=== PATIENT | female | born 1930 | race Caucasian/White ===

== ENCOUNTER 2018-11-19 11:17 | Inpatient (IN) | payer MEDICARE, BC ==
[2018-11-19] MEDS ORDERED: cefTRIAXone IN SWFI 1,000 MG/10 ML SYRINGE IVP STA (11:51)
[2018-11-19] MEDS ORDERED: metroNIDAZOLE-NS PMX 500 MG in SALINE 1 100ML.BAG IVPB STA (11:51)
[2018-11-19] MEDS ORDERED: SODIUM CHLORIDE 0.9% 1,000 ML IV ONE (11:51)
--- NOTE | 2018-11-19 11:57 | ED ---
General Adult HPI - General Chief complaint: Abdominal Pain Stated complaint: hernia pain - History of Present Illness Initial comments: Patient is an 88-year-old female who presents with a chief complaint of abdominal pain. The patient states this is been going on since . She states that she fell outside and that her abdominal pain started shortly after. She has a history of a hiatal hernia. Reading fall, patient states that it was a mechanical fall, she did not lose consciousness or hit her head. She does not take any blood thinners. He was evaluated for her abdominal pain with a computed tomography scan performed at an outside facility. She was informed that she had a rupture of her hiatal hernia was instructed to come to the em ergency Department immediately. - Related Data Home Medications Medication Instructions Recorded Confirmed Biotin 5,000 mcg PO DAILY 11/19/18 11/19/18 Cholecalciferol [Vitamin D3 (25 1,000 unit PO DAILY 11/19/18 11/19/18 Mcg = 1000 Iu)] Docusate [Colace] 100 mg PO DAILY 11/19/18 11/19/18 Multivitamins, Thera [Multivitamin 1 tab PO DAILY 11/19/18 11/19/18 (formulary)] Omeprazole [PriLOSEC] 40 mg PO DAILY 11/19/18 11/19/18 Prevagen 1 tab PO DAILY 11/19/18 11/19/18 Vit C/E/Zn/Coppr/Lutein/Zeaxan 2 cap PO DAILY 11/19/18 11/19/18 [Preservision Areds 2 Softgel] amLODIPine [Norvasc] 5 mg PO DAILY 11/19/18 11/19/18 traMADol HCL [Ultram] 25 mg PO Q6H PRN 11/19/18 11/19/18 Allergies Allergy/AdvReac Type Severity Reaction Status Date / Time celecoxib [From Celebrex] Allergy Rash/Hives Verified 11/19/18 12:35 Sulfa (Sulfonamide Allergy Unknown Verified 11/19/18 12:35 Antibiotics) gatifloxacin [From Tequin] AdvReac Unknown Unknown Verified 11/19/18 12:35 Review of Systems ROS Statement: Those systems with pertinent positive or pertinent negative responses have been documented in the HPI. ROS Other: All systems not noted in ROS Statement are negative. Gastrointestinal: Reports: abdominal pain Past Medical History Past Medical History: GERD/Reflux, Hypertension Additional Past Medical History / Comment(s): INCONT OF URNE,HIATAL HERNIA, MIGRAINES,DIVERTICULITIS, History of Any Multi-Drug Resistant Organisms: None Reported Past Surgical History: Appendectomy, Back Surgery, Cholecystectomy, Hysterectomy Additional Past Surgical History / Comment(s): CATARACTS, BACK SX HAS METAL IN PLACE,HAMMER TOE SX, Past Anesthesia/Blood Transfusion Reactions: No Reported Reaction Smoking Status: Never smoker - Past Family History Father Additional Family Medical History / Comment(s): AT AGE 50 POLYCYTHEMIA Mother Family Medical History: Osteoarthritis (OA) Additional Family Medical History / Comment(s): MOM AT AGE 90 , General Exam Limitations: no limitations General appearance: alert, in no apparent distress Head exam: Present: atraumatic, normocephalic Eye exam: Present: normal appearance ENT exam: Present: normal exam Neck exam: Present: normal inspection Respiratory exam: Present: normal lung sounds bilaterally. Absent: respiratory distress, wheezes Cardiovascular Exam: Present: regular rate, normal rhythm GI/Abdominal exam: Present: soft, tenderness (Patient has tenderness palpation in the epigastric region. There is mild rebound tenderness), rebound. Absent: distended, rigid Rectal exam: Present: deferred Extremities exam: Present: normal inspection Back exam: Present: normal inspection Neurological exam: Present: alert, oriented X3 Psychiatric exam: Present: normal affect, normal mood Skin exam: Present: warm, dry, intact Course Vital Signs 11/19/18 11/19/18 11:47 13:24 Temperature 97.4 F L Pulse Rate 67 74 Respiratory 20 18 Rate Blood Pressure 143/78 142/71 O2 Sat by Pulse 99 Oximetry Medical Decision Making - Medical Decision Making Patient presents with a chief complaint of abdominal pain and a computed tomography scan that reported a rupture of her hiatal hernia. On initial evaluation, vitals are stable, patient is in no acute distress. She is alert and oriented, answers questions appropriately. Abdominal exam shows tenderness with mild rebound. CT images are currently being uploaded. Patient to be evaluated they let including lactic acid, cardiac enzymes, and EKG. Patient will have a KUB. Patient given a liter of fluid, started on Rocephin and Flagyl. We'll contact surgery on-call. EKG performed at 1225 shows sinus rhythm with first-degree AV block. KS interval is 220 ms. No acute findings of ischemia. I spoke with Dr. Israel's nurse, he is currently in the operating room. 12:39 PM Case discussed with Dr. Israel. He is requesting a CT of the chest abdomen and pelvis with oral contrast only. Patient will be updated in the care plan. 3:33 PM Laboratory evaluation of this patient is unremarkable. Computed tomography scan does not show any evidence of perforation with oral contrast however there is evidence of an ileus. Dr. Israel is agreeable to observation for ileus. Medicine consult. Case discussed with the patient and her family, they are agreeable with current care plan. - Lab Data Result diagrams: 11/19/18 11:57 11/19/18 11:57 Lab Results 11/19/18 11/19/18 11/19/18 Range/Units 11:57 11:57 11:57 WBC 13.5 H (3.8-10.6) k/uL RBC 4.42 (3.80-5.40) m/uL Hgb 14.0 (11.4-16.0) gm/dL Hct 43.8 (34.0-46.0) % MCV 99.3 (80.0-100.0) fL MCH 31.6 (25.0-35.0) pg MCHC 31.8 (31.0-37.0) g/dL RDW 13.4 (11.5-15.5) % Plt Count 304 (150-450) k/uL Neutrophils % 82 % Lymphocytes % 11 % Monocytes % 5 % Eosinophils % 1 % Basophils % 1 % Neutrophils # 11.0 H (1.3-7.7) k/uL Lymphocytes # 1.4 (1.0-4.8) k/uL Monocytes # 0.7 (0-1.0) k/uL Eosinophils # 0.1 (0-0.7) k/uL Basophils # 0.1 (0-0.2) k/uL Sodium 139 (137-145) mmol/L Potassium 4.3 (3.5-5.1) mmol/L Chloride 100 (98-107) mmol/L Carbon Dioxide 30 (22-30) mmol/L Anion Gap 9 mmol/L BUN 17 (7-17) mg/dL Creatinine 0.81 (0.52-1.04) mg/dL Est GFR (CKD-EPI)AfAm 76 (>60 ml/min/1.73 sqM) Est GFR (CKD-EPI)NonAf 66 (>60 ml/min/1.73 sqM) Glucose 94 (74-99) mg/dL Plasma Lactic Acid Nehemias 1.4 (0.7-2.0) mmol/L Calcium 10.4 H (8.4-10.2) mg/dL Total Bilirubin 0.6 (0.2-1.3) mg/dL AST 21 (14-36) U/L ALT 22 (9-52) U/L Alkaline Phosphatase 96 (38-126) U/L Troponin I (0.000-0.034) ng/mL Total Protein 6.7 (6.3-8.2) g/dL Albumin 3.9 (3.5-5.0) g/dL Lipase 68 (23-300) U/L 11/19/18 Range/Units 11:57 WBC (3.8-10.6) k/uL RBC (3.80-5.40) m/uL Hgb (11.4-16.0) gm/dL Hct (34.0-46.0) % MCV (80.0-100.0) fL MCH (25.0-35.0) pg MCHC (31.0-37.0) g/dL RDW (11.5-15.5) % Plt Count (150-450) k/uL Neutrophils % % Lymphocytes % % Monocytes % % Eosinophils % % Basophils % % Neutrophils # (1.3-7.7) k/uL Lymphocytes # (1.0-4.8) k/uL Monocytes # (0-1.0) k/uL Eosinophils # (0-0.7) k/uL Basophils # (0-0.2) k/uL Sodium (137-145) mmol/L Potassium (3.5-5.1) mmol/L Chloride (98-107) mmol/L Carbon Dioxide (22-30) mmol/L Anion Gap mmol/L BUN (7-17) mg/dL Creatinine (0.52-1.04) mg/dL Est GFR (CKD-EPI)AfAm (>60 ml/min/1.73 sqM) Est GFR (CKD-EPI)NonAf (>60 ml/min/1.73 sqM) Glucose (74-99) mg/dL Plasma Lactic Acid Nehemias (0.7-2.0) mmol/L Calcium (8.4-10.2) mg/dL Total Bilirubin (0.2-1.3) mg/dL AST (14-36) U/L ALT (9-52) U/L Alkaline Phosphatase (38-126) U/L Troponin I <0.012 (0.000-0.034) ng/mL Total Protein (6.3-8.2) g/dL Albumin (3.5-5.0) g/dL Lipase (23-300) U/L Disposition Clinical Impression: Hiatal hernia, Fall, Abdominal pain, Ileus Disposition: ADMITTED IP TO THIS [facility] Condition: Good Is patient prescribed a controlled substance at d/c from ED?: No Referrals: Nonstaff,Physician [REFERRING] - 1-2 days Decision to Admit Reason: Admit from EC - Out of Hospital Transfer - Req. Specs Out of Hospital Transfer - Requested Specifics: Other Non-Acute
[2018-11-19] MEDS ORDERED: IOPAMIDOL-300 CONTRAST 30 ML VIAL (ORAL USE) PO PRN (12:38)
--- NOTE | 2018-11-19 12:54 | XR ---
KUB HISTORY: Abdominal and back pain Frontal KUB submitted. Correlation to prior CT from outside institution 11/17/2018 chest abdomen pelvi s. Lung bases are clear. There is a hiatal hernia with partial intrathoracic stomach. There is some blun ting of the right costophrenic angle which is stable, right hemidiaphragm probably elevated. Surgical clips present in the right upper quadrant. Posterior fusion changes are present in the lumbar spine, there is a spinal curvature. There are air-fluid levels present within the abdomen. Retained fecal d ebris present within the colon on the right. Arthropathy noted in the hips. No pneumoperitoneum. Bone mineralization is reduced. IMPRESSION: Multiple air-fluid levels could be indicative of underlying ileus, correlate to exclude e nteritis, obstruction, follow-up as indicated. Additional findings above.
[2018-11-19 13:13] LABS: Basophils # (A) 0.1 k/uL (0-0.2); Basophils % (A) 1 %; Eosinophils # (A) 0.1 k/uL (0-0.7); Eosinophils % (A) 1 %; HCT 43.8 % (34.0-46.0); Lymphocytes # (A) 1.4 k/uL (1.0-4.8); Lymphocytes % (A) 11 %; MCH 31.6 pg (25.0-35.0); MCHC 31.8 g/dL (31.0-37.0); MCV 99.3 fL (80.0-100.0); Mean Platelet Volume 8.4; Monocytes # (A) 0.7 k/uL (0-1.0); Monocytes % (A) 5 %; Neutrophils % (A) 82 %; Platelet Count 304 k/uL (150-450); RBC 4.42 m/uL (3.80-5.40); RDW 13.4 % (11.5-15.5); WBC 13.5 k/uL (3.8-10.6)
[2018-11-19 13:23] LABS: Albumin 3.9 g/dL (3.5-5.0); Calcium 10.4 mg/dL (8.4-10.2); Potassium 4.3 mmol/L (3.5-5.1); Total Bilirubin 0.6 mg/dL (0.2-1.3); Total Protein 6.7 g/dL (6.3-8.2)
--- NOTE | 2018-11-19 14:56 | CT ---
EXAMINATION TYPE: CT ChestAbdPelvis wo con DATE OF EXAM: 11/19/2018 COMPARISON: 11/17/2018 HISTORY: Hernia pain, back pain CT DLP: 448.2 mGycm. Automated Exposure Control for Dose Reduction was Utilized. TECHNIQUE: CT scan of the thorax, abdomen and pelvis is performed without IV contrast. FINDINGS: There is right lower lobe consolidation and small effusion. Large hiatal hernia noted. Athe rosclerotic change of the aorta. Calcified lymph nodes are seen. Contrast within the esophagus sugges t the patient at risk for aspiration. Lack of IV contrast limits assessment of the abdominal viscera. Hypodensities within the liver are in determinate but likely related to cysts. No hydronephrosis or nephrolithiasis. Adrenal glands demonst rate mild thickening on the left with a 1 cm nodule which is indeterminate. Pancreas limited. Previou s cholecystectomy noted. Bowel gas pattern nonspecific. Retained fecal debris throughout the colon. Diverticulosis of the colo n seen. Bladder is markedly distended. There is a right inguinal hernia containing small bowel loops. Postsurgical change involving vertebral column. Degenerative changes noted. Grade 1 anterolisthesis L 5 on S1. Rib deformities suggest remote trauma. Motion artifact limits assessment of the rib cage. No pneumothorax. Bowel and bladder of both low-lying suggestive of anteroseptal and cystoceles. Her graft there is a c ompression fracture of the inferior endplate of T8 no significant retropulsion. There is limitation with regard to artifact from metallic hardware which obscures significant portion s of the abdomen and pelvis. Low density lesion within the left kidney is indeterminate by noncontrast technique but present on th e prior exam. Calcified granuloma right lower lobe. Severe arthropathy of the hips. Greater on the le ft with cystic changes involving the left femoral head likely in the basis of chronic arthropathy. Re modeling of the acetabulum noted. IMPRESSION: 1. There is a mild inferior endplate compression fracture of T8. No significant retropulsion. Stable from exam of 11/17/2018. 2. Large hiatal hernia and small to moderate-sized right inguinal hernia. 3. Indeterminate left renal and hepatic lesions although the most likely related to cysts. 4. Cardiomegaly with coronary artery calcification 5. Small right pleural effusion with multiple right-sided rib deformities majority which appear to be chronic. Due to motion exam is limited. Could not exclude a hairline nondisplaced fracture.
[2018-11-19] MEDS ORDERED: NALOXONE 0.4 MG/ML 1 ML VIAL IV PRN (15:34)
[2018-11-19] MEDS ORDERED: ONDANSETRON 4 MG/2 ML VIAL IVP STA (16:34)
[2018-11-19] MEDS ORDERED: MORPHINE SULFATE 2 MG/ML SYRINGE IVP STA (16:34)
[2018-11-19 17:48] VITALS: BMI 18.8
[2018-11-19] MEDS: SODIUM CHLORIDE 0.9% 1,000 ML IV SCH (18:13)
--- NOTE | 2018-11-19 19:20 | P.CONS ---
History of Present Illness - Reason for Consult Consult date: 11/19/18 Medical management Requesting physician: Salvador Israel - Chief Complaint Abdominal pain - History of Present Illness 88-year-old female with PMH of hypertension, GERD presents to the ED for abdominal pain. [facility] has been consulted for medical management of this patient. Patient reports abdominal pain has been ongoing for the past 4 days. Pain is progressively getting worse. Pain is epigastric in area, pressure-like in nature. Pain is 10 out of 10 in severity and is constant. Patient reports aggravation of pain with meals. Patient reports that the pain radiates to the back. Patient was seen in the ED on Monday at [facility] and comput ed tomography scan was obtained. She was called today and told that she had ruptured a hiatal hernia and was told to go to the ED emergently. Patient reports nausea but no vomiting. Last bowel movement was 5 days ago. Patient reports passing gas. She denies any headache, lower extremity edema, vomiting, fever or chills, cough, chest pain, shortness of breath, palpitations or changes in urination. No changes in appetite or weight. In the ED, vital signs were stable. CBC showed a mild leukocytosis of 13.5. CMP was unremarkable. Lactic acid was negative. Troponin was less than 0.012, EKG showing sinus rhythm with first-degree AV block. Abdominal x-ray showed signs concerning for ileus. CT of the abdomen and pelvis shows mild inferior compression fracture T8. Large hiatal hernia, small to moderate right inguinal hernia. Small right pleural effusion with multiple right-sided rib deformities, chronic. Review of Systems Pertinent positives and negatives as discussed in HPI, a complete review of systems was performed and all other systems are negative. Past Medical History Past Medical History: GERD/Reflux, Hypertension Additional Past Medical History / Comment(s): INCONT OF URNE,HIATAL HERNIA, MIGRAINES,DIVERTICULITIS, History of Any Multi-Drug Resistant Organisms: None Reported Past Surgical History: Appendectomy, Back Surgery, Cholecystectomy, Hysterectomy Additional Past Surgical History / Comment(s): CATARACTS, BACK SX HAS METAL IN PLACE,HAMMER TOE SX, Past Anesthesia/Blood Transfusion Reactions: No Reported Reaction Past Psychological History: No Psychological Hx Reported Smoking Status: Never smoker Past Alcohol Use History: None Reported Past Drug Use History: None Reported - Past Family History Father Additional Family Medical History / Comment(s): AT AGE 50 POLYCYTHEMIA Mother Family Medical History: Osteoarthritis (OA) Additional Family Medical History / Comment(s): MOM AT AGE 90 , Medications and Allergies Home Medications Medication Instructions Recorded Confirmed Type Biotin 5,000 mcg PO DAILY 11/19/18 11/19/18 History Cholecalciferol [Vitamin D3 (25 1,000 unit PO DAILY 11/19/18 11/19/18 History Mcg = 1000 Iu)] Docusate [Colace] 100 mg PO DAILY 11/19/18 11/19/18 History Multivitamins, Thera [Multivitamin 1 tab PO DAILY 11/19/18 11/19/18 History (formulary)] Omeprazole [PriLOSEC] 40 mg PO DAILY 11/19/18 11/19/18 History Prevagen 1 tab PO DAILY 11/19/18 11/19/18 History Vit C/E/Zn/Coppr/Lutein/Zeaxan 2 cap PO DAILY 11/19/18 11/19/18 History [Preservision Areds 2 Softgel] amLODIPine [Norvasc] 5 mg PO DAILY 11/19/18 11/19/18 History traMADol HCL [Ultram] 25 mg PO Q6H PRN 11/19/18 11/19/18 History Allergies Allergy/AdvReac Type Severity Reaction Status Date / Time celecoxib [From Celebrex] Allergy Rash/Hives Verified 11/19/18 12:35 Sulfa (Sulfonamide Allergy Unknown Verified 11/19/18 12:35 Antibiotics) gatifloxacin [From Tequin] AdvReac Unknown Unknown Verified 11/19/18 12:35 Physical Exam Vitals: Vital Signs Temp Pulse Resp BP Pulse Ox 11/19/18 16:31 98.0 F 76 20 159/91 95 11/19/18 13:24 74 18 142/71 99 11/19/18 11:47 97.4 F L 67 20 143/78 Intake and Output 11/19/18 11/19/18 11/19/18 06:59 14:59 22:59 Other: Weight 46.9 kg General: [non toxic], [no distress], [appears at stated age] Derm: [warm], [dry] Head: [atraumatic], [normocephalic], [symmetric] Eyes: [EOMI], [no lid lag], [anicteric sclera] Mouth: [no lip lesion], [mucus membranes moist] Cardiovascular: [S1S2 reg], [no murmur], [positive DP pulse bilateral], Lungs: [CTA bilateral], [no rhonchi, no rales] , [no accessory muscle use] Abdominal: [soft], [epigastric tenderness to palpation with no rebound], [no guarding], [no appreciable organomegaly] Ext: [no gross muscle atrophy], [no edema], [no contractures] Neuro: [ CN II-XI grossly intact], [no focal neuro deficits] Psych: [Alert], [oriented], [appropriate affect] Results CBC & Chem 7: 11/19/18 11:57 11/19/18 11:57 Labs: Abnormal Lab Results - Last 24 Hours (Table) 11/19/18 11/19/18 Range/Units 11:57 11:57 WBC 13.5 H (3.8-10.6) k/uL Neutrophils # 11.0 H (1.3-7.7) k/uL Calcium 10.4 H (8.4-10.2) mg/dL Assessment and Plan Assessment: Assessment and Plan Abdominal pain, likely secondary to ileus. Leukocytosis Hypertension GERD CT abdomen and pelvis shows no concerns for rupture. Patient is hemodynamically stable. Given 1 dose of Rocephin and Flagyl. Plans: Management as per general surgery. Continue normal saline at 75 mL per hour. Zofran as needed for nausea and vomiting. Nothing by mouth and advance diet as tolerated. Leukocytosis of 13.5 with neutrophilia, afebrile. No obvious signs of infection. Lactic acid is negative. Plans: Follow blood cultures. Will hold antibiotics for now pending surgery evaluation. Daily CBC. BP 159/91. Plans: Continue amlodipine. Monitor vitals, adjust medications as necessary. Plans: Continue PPI. Patient is admitted for abdominal pain, likely secondary to ileus. Gen. surgery is onboard. She is pending clinical improvement. Patient states that she would like her [place] to be decision making the case that she can make decisions for herself. Patient reiterates wanting to remain full code at this time.
[2018-11-19] MEDS: MORPHINE SULFATE 2 MG/ML SYRINGE IVP PRN (20:24)
[2018-11-20] MEDS: MORPHINE SULFATE 2 MG/ML SYRINGE IVP PRN ×4 (03:24→19:26)
[2018-11-20] MEDS: SODIUM CHLORIDE 0.9% 1,000 ML IV SCH ×2 (06:21→17:34)
[2018-11-20] MEDS: DOCUSATE 100 MG CAP PO SCH (08:27)
[2018-11-20] MEDS: amLODIPine 5 MG TAB PO SCH (08:27)
[2018-11-20] MEDS: PANTOPRAZOLE 40 MG TABLET PO SCH (08:27)
[2018-11-20] MEDS: LIDOCAINE 5% PATCH TOPICAL SCH (08:34)
[2018-11-20 10:31] LABS: Basophils # (A) 0.1 k/uL (0-0.2); Basophils % (A) 0 %; Eosinophils # (A) 0.1 k/uL (0-0.7); Eosinophils % (A) 1 %; HGB 12.4 gm/dL (11.4-16.0); Lymphocytes # (A) 1.3 k/uL (1.0-4.8); Lymphocytes % (A) 11 %; MCH 32.1 pg (25.0-35.0); MCHC 31.7 g/dL (31.0-37.0); MCV 101.1 fL (80.0-100.0); Monocytes # (A) 0.7 k/uL (0-1.0); Monocytes % (A) 6 %; Neutrophils # (A) 9.7 k/uL (1.3-7.7); Neutrophils % (A) 81 %; Platelet Count 262 k/uL (150-450); RBC 3.86 m/uL (3.80-5.40); RDW 12.2 % (11.5-15.5)
[2018-11-20 10:44] LABS: ALT 18 U/L (9-52); AST 21 U/L (14-36); African American GFR (CKD) >90 (>60 ml/min/1.73 sqM); Alkaline Phosphatase 77 U/L (38-126); Anion Gap 6 mmol/L; Blood Urea Nitrogen 12 mg/dL (7-17); Calcium 9.1 mg/dL (8.4-10.2); Carbon Dioxide 26 mmol/L (22-30); Chloride 107 mmol/L (98-107); Glucose 74 mg/dL (74-99); Potassium 4.2 mmol/L (3.5-5.1); Sodium 139 mmol/L (137-145); Total Bilirubin 0.4 mg/dL (0.2-1.3); Total Protein 5.4 g/dL (6.3-8.2)
--- NOTE | 2018-11-20 14:42 | P.GSHP ---
History of Present Illness H&P Date: 11/20/18 Chief Complaint: abdominal pain CHIEF COMPLAINT: Abdominal pain HISTORY OF PRESENT ILLNESS: 88-year-old female who reports a 3-4 day history of abdominal pain. Patient reports pain was mostly in the epigastric region. She reports nausea but denies emesis. Reports last BM was about 5 days ago. She denies feeling constipated. Reports passing small amounts of flatus this morning. Denies fever or chills. Patient reports she was evaluated at [facility] over the weekend and had a CT scan performed. Apparently, patient was notified via phone that she had a ruptured hiatal hernia and was told to come to the emergency room. PAST MEDICAL HISTORY: See list. PAST SURGICAL HISTORY: See list. SOCIAL HISTORY: No illicit drug use. REVIEW OF SYSTEMS: CONSTITUTIONAL: Denies fever or chills. HEENT: Denies blurred vision, vision changes, or eye pain. Denies hemoptysis CARDIOVASCULAR: Denies chest pain or pressure. RESPIRATORY: No shortness of breath. GASTROINTESTINAL: Refer to [facility] for pertinent findings HEMATOLOGIC: Denies bleeding disorders. GENITOURINARY: Denies any blood in urine. SKIN: Denies pruitis. Denies rash. PHYSICAL EXAM: VITAL SIGNS: Reviewed. GENERAL: Well-developed in no acute distress. HEENT: No sclera icterus. Extraocular movements grossly intact. Moist buccal mucosa. Head is atraumatic, normocephalic. ABDOMEN: Soft. Nondistended. Mild tenderness with palpation. Right inguinal hernia. Reducible. NEUROLOGIC: Alert and oriented. Cranial nerves II through XII grossly intact. LABORATORY DATA: WBC 12.0. Hemoglobin 12.4. Potassium 4.2. BUN 12. Creatinine 0.64. IMAGIN. KUB x-ray: Multiple air-fluid levels could be indicative of underlying ileus, correlate to exclude enteritis, obstruction 2. CT abdomen and pelvis: Large hiatal hernia and small to moderate-sized right inguinal hernia. ASSESSMENT: 1. Ileus 2. Hiatal hernia 3. Right inguinal hernia PLAN: 1. NPO until abdominal pain improves 2. Pain control 3. Activity as tolerated 4. Patient to have outpatient repair of right inguinal hernia Nurse practitioner note has been reviewed by physician. Signing provider agrees with the documented findings, assessment, and plan of care. Past Medical History Past Medical History: GERD/Reflux, Hypertension Additional Past Medical History / Comment(s): INCONT OF URNE,HIATAL HERNIA, MIGRAINES,DIVERTICULITIS, History of Any Multi-Drug Resistant Organisms: None Reported Past Surgical History: Appendectomy, Back Surgery, Cholecystectomy, Hysterectomy Additional Past Surgical History / Comment(s): CATARACTS, BACK SX HAS METAL IN PLACE,HAMMER TOE SX, Past Anesthesia/Blood Transfusion Reactions: No Reported Reaction Past Psychological History: No Psychological Hx Reported Smoking Status: Never smoker Past Alcohol Use History: None Reported Past Drug Use History: None Reported - Past Family History Father Additional Family Medical History / Comment(s): AT AGE 50 POLYCYTHEMIA Mother Family Medical History: Osteoarthritis (OA) Additional Family Medical History / Comment(s): MOM AT AGE 90 , Medications and Allergies Home Medications Medication Instructions Recorded Confirmed Type Biotin 5,000 mcg PO DAILY 11/19/18 11/19/18 History Cholecalciferol [Vitamin D3 (25 1,000 unit PO DAILY 11/19/18 11/19/18 History Mcg = 1000 Iu)] Docusate [Colace] 100 mg PO DAILY 11/19/18 11/19/18 History Multivitamins, Thera [Multivitamin 1 tab PO DAILY 11/19/18 11/19/18 History (formulary)] Omeprazole [PriLOSEC] 40 mg PO DAILY 11/19/18 11/19/18 History Prevagen 1 tab PO DAILY 11/19/18 11/19/18 History Vit C/E/Zn/Coppr/Lutein/Zeaxan 2 cap PO DAILY 11/19/18 11/19/18 History [Preservision Areds 2 Softgel] amLODIPine [Norvasc] 5 mg PO DAILY 11/19/18 11/19/18 History traMADol HCL [Ultram] 25 mg PO Q6H PRN 11/19/18 11/19/18 History Allergies Allergy/AdvReac Type Severity Reaction Status Date / Time celecoxib [From Celebrex] Allergy Rash/Hives Verified 11/19/18 12:35 Sulfa (Sulfonamide Allergy Unknown Verified 11/19/18 12:35 Antibiotics) gatifloxacin [From Tequin] AdvReac Unknown Unknown Verified 11/19/18 12:35 Surgical - Exam Vital Signs Temp Pulse Resp BP 97.4 F L 67 20 143/78 11/19/18 11:47 11/19/18 11:47 11/19/18 11:47 11/19/18 11:47 Results - Labs 11/20/18 09:32 11/20/18 09:32 Abnormal Lab Results - Last 24 Hours (Table) 11/20/18 11/20/18 Range/Units 09:32 09:32 WBC 12.0 H (3.8-10.6) k/uL MCV 101.1 H (80.0-100.0) fL Neutrophils # 9.7 H (1.3-7.7) k/uL Total Protein 5.4 L (6.3-8.2) g/dL Albumin 3.0 L (3.5-5.0) g/dL Diabetes panel 11/20/18 Range/Units 09:32 Sodium 139 (137-145) mmol/L Potassium 4.2 (3.5-5.1) mmol/L Chloride 107 (98-107) mmol/L Carbon Dioxide 26 (22-30) mmol/L BUN 12 (7-17) mg/dL Creatinine 0.64 (0.52-1.04) mg/dL Glucose 74 (74-99) mg/dL Calcium 9.1 (8.4-10.2) mg/dL AST 21 (14-36) U/L ALT 18 (9-52) U/L Alkaline Phosphatase 77 (38-126) U/L Total Protein 5.4 L (6.3-8.2) g/dL Albumin 3.0 L (3.5-5.0) g/dL Calcium panel 11/20/18 Range/Units 09:32 Calcium 9.1 (8.4-10.2) mg/dL Albumin 3.0 L (3.5-5.0) g/dL Pituitary panel 11/20/18 Range/Units 09:32 Sodium 139 (137-145) mmol/L Potassium 4.2 (3.5-5.1) mmol/L Chloride 107 (98-107) mmol/L Carbon Dioxide 26 (22-30) mmol/L BUN 12 (7-17) mg/dL Creatinine 0.64 (0.52-1.04) mg/dL Glucose 74 (74-99) mg/dL Calcium 9.1 (8.4-10.2) mg/dL Adrenal panel 11/20/18 Range/Units 09:32 Sodium 139 (137-145) mmol/L Potassium 4.2 (3.5-5.1) mmol/L Chloride 107 (98-107) mmol/L Carbon Dioxide 26 (22-30) mmol/L BUN 12 (7-17) mg/dL Creatinine 0.64 (0.52-1.04) mg/dL Glucose 74 (74-99) mg/dL Calcium 9.1 (8.4-10.2) mg/dL Total Bilirubin 0.4 (0.2-1.3) mg/dL AST 21 (14-36) U/L ALT 18 (9-52) U/L Alkaline Phosphatase 77 (38-126) U/L Total Protein 5.4 L (6.3-8.2) g/dL Albumin 3.0 L (3.5-5.0) g/dL
[2018-11-20] MEDS ORDERED: POLYETHYLENE GLYCOL 3350 17 GM POWD.PACK PO STA (14:58)
--- NOTE | 2018-11-20 14:58 | P.PN ---
Subjective Progress Note Date: 11/20/18 Principal diagnosis: ileus Patient was seen and examined. No acute events overnight. Patient reports improvement in her epigastric pain, now 5 out of 10 in severity. She denies any nausea or vomiting. States that she does not want to eat at this time. Has not had a bowel movement neither she passing gas at this time. Objective - Vital Signs Vital signs: Vital Signs Temp 99.0 F 11/20/18 04:32 Pulse 76 11/20/18 04:32 Resp 16 11/20/18 04:32 BP 136/71 11/20/18 04:32 Pulse Ox 96 11/20/18 04:32 Intake & Output 11/19/18 11/20/18 11/20/18 18:59 06:59 18:59 Weight 46.9 kg 46.9 kg Other: Voiding Method Bedside Commode # Voids 1 - Exam General: [non toxic], [no distress], [appears at stated age] Derm: [warm], [dry] Head: [atraumatic], [normocephalic], [symmetric] Eyes: [EOMI], [no lid lag], [anicteric sclera] Mouth: [no lip lesion], [mucus membranes moist] Cardiovascular: [S1S2 reg], [no murmur], [positive DP pulse bilateral], Lungs: [CTA bilateral], [no rhonchi, no rales] , [no accessory muscle use] Abdominal: [soft], [epigastric tenderness to palpation with no rebound], [no guarding], [no appreciable organomegaly] Ext: [no gross muscle atrophy], [no edema], [no contractures] Neuro: [no focal neuro deficits] Psych: [Alert], [oriented], [appropriate affect] - Labs CBC & Chem 7: 11/20/18 09:32 11/20/18 09:32 Labs: Abnormal Lab Results - Last 24 Hours (Table) 11/20/18 11/20/18 Range/Units 09:32 09:32 WBC 12.0 H (3.8-10.6) k/uL MCV 101.1 H (80.0-100.0) fL Neutrophils # 9.7 H (1.3-7.7) k/uL Total Protein 5.4 L (6.3-8.2) g/dL Albumin 3.0 L (3.5-5.0) g/dL Assessment and Plan Assessment: Assessment and Plan Abdominal pain, likely secondary to ileus. Leukocytosis Hypertension GERD CT abdomen and pelvis shows no concerns for rupture. Patient is hemodynamically stable. Given 1 dose of Rocephin and Flagyl. Plans: Management as per general surgery. Continue normal saline at 75 mL per hour. Zofran as needed for nausea and vomiting. Nothing by mouth and advance diet as tolerated. Start MiraLAX to help bowel movement. Leukocytosis of 13.5-12 with neutrophilia, afebrile. No obvious signs of infection. Lactic acid is negative. Plans: Follow blood cultures. Will hold antibiotics for now pending surgery evaluation. Daily CBC. BP 136/71. Plans: Continue amlodipine. Monitor vitals, adjust medications as necessary. Plans: Continue PPI. Patient is admitted for abdominal pain, likely secondary to ileus. Gen. surgery is onboard. She is pending clinical improvement.
[2018-11-21] MEDS: MORPHINE SULFATE 2 MG/ML SYRINGE IVP PRN ×2 (03:22→08:02)
[2018-11-21] MEDS: PANTOPRAZOLE 40 MG TABLET PO SCH (07:54)
[2018-11-21] MEDS: SODIUM CHLORIDE 0.9% 1,000 ML IV SCH ×2 (07:54→19:11)
[2018-11-21] MEDS: DOCUSATE 100 MG CAP PO SCH (07:54)
[2018-11-21] MEDS: amLODIPine 5 MG TAB PO SCH (07:54)
[2018-11-21] MEDS: LIDOCAINE 5% PATCH TOPICAL SCH (07:55)
--- NOTE | 2018-11-21 11:04 | P.PN ---
Subjective Progress Note Date: 11/21/18 CHIEF COMPLAINT: Abdominal pain HISTORY OF PRESENT ILLNESS: Patient examined at the bedside. She is lethargic from receiving morphine. She states her abdominal pain has improved from yesterday. She denies abdominal pain while laying in bed. She reports pain increases with movement. She is passing flatus. PHYSICAL EXAM: VITAL SIGNS: Reviewed. GENERAL: Well-developed in no acute distress. HEENT: No sclera icterus. Extraocular movements grossly intact. Moist buccal mucosa. Head is atraumatic, normocephalic. ABDOMEN: Soft. Nondistended. Mild tenderness with palpation. Right inguinal hernia. Reducible. NEUROLOGIC: Alert and oriented. Cranial nerves II through XII grossly intact. ASSESSMENT: 1. Ileus 2. Hiatal hernia 3. Right inguinal hernia PLAN: 1. Begin clear liquid diet 2. Pain control 3. Activity as tolerated 4. Patient to have outpatient repair of right inguinal hernia Nurse practitioner note has been reviewed by physician. Signing provider agrees with the documented findings, assessment, and plan of care. Objective - Vital Signs Vital signs: Vital Signs Temp 97.6 F 11/21/18 04:50 Pulse 72 11/21/18 04:50 Resp 20 11/21/18 04:50 BP 137/75 11/21/18 04:50 Pulse Ox 95 11/21/18 04:50 Intake & Output 11/20/18 11/21/18 11/21/18 18:59 06:59 18:59 Weight 46.9 kg Other: Voiding Method Bedside Commode # Voids 2 3 - Labs CBC & Chem 7: 11/20/18 09:32 11/20/18 09:32 Labs: Microbiology - Last 24 Hours (Table) 11/19/18 11:57 Blood Culture - Preliminary Blood No Growth after 24 hours
--- NOTE | 2018-11-21 13:51 | P.PN ---
Subjective Progress Note Date: 11/21/18 Principal diagnosis: Ileus Patient was seen and examined. No acute events overnight. Patient able to tolerate clear liquids this morning. Patient complains of mild epigastric d iscomfort with meals. Has not had a bowel movement yet. States that she is passing gas though however. She denies any chest pain, shortness of breath or palpitations. Objective - Vital Signs Vital signs: Vital Signs Temp 97.6 F 11/21/18 04:50 Pulse 72 11/21/18 04:50 Resp 20 11/21/18 04:50 BP 137/75 11/21/18 04:50 Pulse Ox 95 11/21/18 04:50 Intake & Output 11/20/18 11/21/18 11/21/18 18:59 06:59 18:59 Weight 46.9 kg Other: Voiding Method Bedside Commode # Voids 2 3 1 - Exam General: [non toxic], [no distress], [appears at stated age] Derm: [warm], [dry] Head: [atraumatic], [normocephalic], [symmetric] Eyes: [EOMI], [no lid lag], [anicteric sclera] Mouth: [no lip lesion], [mucus membranes moist] Cardiovascular: [S1S2 reg], [no murmur], [positive DP pulse bilateral], Lungs: [CTA bilateral], [no rhonchi, no rales] , [no accessory muscle use] Abdominal: [soft], [epigastric tenderness to palpation with no rebound], [no guarding], [no appreciable organomegaly] Ext: [no gross muscle atrophy], [no edema], [no contractures] Neuro: [no focal neuro deficits] Psych: [Alert], [oriented], [appropriate affect] - Labs CBC & Chem 7: 11/20/18 09:32 11/20/18 09:32 Labs: Microbiology - Last 24 Hours (Table) 11/19/18 11:57 Blood Culture - Preliminary Blood No Growth after 24 hours Assessment and Plan Assessment: Assessment and Plan Abdominal pain, likely secondary to ileus. Leukocytosis Hypertension GERD CT abdomen and pelvis shows no concerns for rupture. Patient is hemodynamically stable. Given 1 dose of Rocephin and Flagyl. Plans: Management as per general surgery. Continue normal saline at 75 mL per hour. Zofran as needed for nausea and vomiting. Clear liquid diet and advance diet as tolerated. Start MiraLAX and Docusate to help bowel movement. Leukocytosis of 13.5-12 with neutrophilia, afebrile. No obvious signs of infection. Lactic acid is negative. Plans: Follow blood cultures. Will hold antibiotics for now pending surgery evaluation. Daily CBC. BP 137/75. Plans: Continue amlodipine. Monitor vitals, adjust medications as necessary. Plans: Continue PPI. Patient is admitted for abdominal pain, likely secondary to ileus. Gen. surgery is onboard. She is pending clinical improvement, needs to help bowel movement. Plans for rehab on Monday.
[2018-11-21] MEDS: ONDANSETRON 4 MG/2 ML VIAL IVP PRN (19:10)
[2018-11-21] MEDS: HYDROcodone/APAP 5-325MG 1 EACH TAB PO PRN (19:10)
[2018-11-22] MEDS: HYDROcodone/APAP 5-325MG 1 EACH TAB PO PRN ×3 (08:14→22:29)
[2018-11-22] MEDS: DOCUSATE 100 MG CAP PO SCH (08:15)
[2018-11-22] MEDS: amLODIPine 5 MG TAB PO SCH (08:15)
[2018-11-22] MEDS: PANTOPRAZOLE 40 MG TABLET PO SCH (08:15)
[2018-11-22] MEDS: LIDOCAINE 5% PATCH TOPICAL SCH (08:17)
[2018-11-22 08:48] LABS: Basophils # (A) 0.1 k/uL (0-0.2); Basophils % (A) 1 %; Eosinophils # (A) 0.3 k/uL (0-0.7); Eosinophils % (A) 4 %; HCT 40.7 % (34.0-46.0); HGB 13.1 gm/dL (11.4-16.0); Lymphocytes # (A) 1.6 k/uL (1.0-4.8); Lymphocytes % (A) 20 %; MCH 31.2 pg (25.0-35.0); MCHC 32.2 g/dL (31.0-37.0); MCV 96.7 fL (80.0-100.0); Mean Platelet Volume 7.7; Monocytes # (A) 0.5 k/uL (0-1.0); Monocytes % (A) 7 %; Neutrophils # (A) 5.3 k/uL (1.3-7.7); Neutrophils % (A) 67 %; Platelet Count 326 k/uL (150-450); RBC 4.21 m/uL (3.80-5.40); RDW 13.1 % (11.5-15.5); WBC 7.9 k/uL (3.8-10.6)
[2018-11-22] MEDS ORDERED: IBUPROFEN 600 MG TAB PO PRN (08:49)
[2018-11-22 09:09] LABS: African American GFR (CKD) >90 (>60 ml/min/1.73 sqM); Anion Gap 7 mmol/L; Blood Urea Nitrogen 9 mg/dL (7-17); Carbon Dioxide 27 mmol/L (22-30); Chloride 106 mmol/L (98-107); Glucose 91 mg/dL (74-99); Potassium 3.8 mmol/L (3.5-5.1); Sodium 140 mmol/L (137-145)
[2018-11-22] MEDS ORDERED: MAGNESIUM HYDROXIDE 2,400 MG/10 ML CUP PO STA ×2 (09:15→09:17)
--- NOTE | 2018-11-22 09:19 | P.PN ---
Subjective Progress Note Date: 11/22/18 Principal diagnosis: rib pain patient was seen and examined. No acute events overnight. Patient has not had a bowel movement yet but does state that she is passing gas. Pain is in the epigastric area and is better controlled since admission while on [place]. She denies any nausea or vomiting. No fever or chills. Patient reports bilateral rib pain worsened with deep inspiration. She did have a fall prior to presentation. Patient denies any chest pain, shortness of breath or palpitations. Objective - Vital Signs Vital signs: Vital Signs Temp 98.2 F 11/22/18 05:42 Pulse 66 11/22/18 05:42 Resp 18 11/22/18 05:42 BP 124/67 11/22/18 05:42 Pulse Ox 94 L 11/22/18 05:42 Intake & Output 11/21/18 11/22/18 11/22/18 18:59 06:59 18:59 Other: Voiding Method Bedside Commode # Voids 1 2 # Bowel Movements 0 - Exam General: [non toxic], [no distress], [appears at stated age] Derm: [warm], [dry] Head: [atraumatic], [normocephalic], [symmetric] Eyes: [EOMI], [no lid lag], [anicteric sclera] Mouth: [no lip lesion], [mucus membranes moist] Cardiovascular: [S1S2 reg], [no murmur], [positive DP pulse bilateral], [tenderness to palpation of the lateral ribs bilaterally] Lungs: [CTA bilateral], [no rhonchi, no rales] , [no accessory muscle use] Abdominal: [soft], [epigastric tenderness to palpation with no rebound], [no guarding], [no appreciable organomegaly] Ext: [no gross muscle atrophy], [no edema], [no contractures] Neuro: [no focal neuro deficits] Psych: [Alert], [oriented], [appropriate affect] - Labs CBC & Chem 7: 11/22/18 07:54 11/22/18 07:54 Labs: Microbiology - Last 24 Hours (Table) 11/19/18 11:57 Blood Culture - Preliminary Blood No Growth after 48 hours Assessment and Plan Assessment: Assessment and Plan Abdominal pain, likely secondary to ileus. Rib pain Leukocytosis Hypertension GERD CT abdomen and pelvis shows no concerns for rupture. Patient is hemodynamically stable. Given 1 dose of Rocephin and Flagyl. Plans: Management as per general surgery. Continue normal saline at 75 mL per hour. Zofran as needed for nausea and vomiting. Clear liquid diet and advance diet as tolerated. Docusate to help bowel movement. One-time dose of milk of magnesia today. Post fall. CT of the abdomen and pelvis shows right-sided consolidation. P lans: Pain management with [place]. Will obtain chest x-ray and rib x-ray. Leukocytosis of 13.5-12-within normal limits, afebrile. No obvious signs of infection. Lactic acid is negative. Blood cultures negative at 48 hours. Plans: Follow blood cultures. Will hold antibiotics for now pending surgery evaluation. Daily CBC. BP 124/67. Plans: Continue amlodipine. Monitor vitals, adjust medications as necessary. Plans: Continue PPI. Patient is admitted for abdominal pain, likely secondary to ileus. Gen. surgery is onboard. She is pending clinical improvement, needs to help bowel movement. Also complains of bilateral rib pain, will obtain x-rays. Plans for rehab on Monday.
--- NOTE | 2018-11-22 09:51 | XR ---
EXAMINATION TYPE: XR abdomen 2V DATE OF EXAM: 11/22/2018 COMPARISON: 11/19/2018 HISTORY: Pain TECHNIQUE: One view abdominal series FINDINGS: Contrast within the colon noted. Bilateral lower lobe consolidation small effusion. 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 Nonspecific sclerosis involving the left iliac bone. Surgical clips are seen in the right upper quadrant. IMPRESSION: 1. Nonspecific abdomen with contrast seen within the colon. The colon is mildly prominent. Correlate for constipation. 2. Bilateral lower lobe infiltrate and small effusion.
--- NOTE | 2018-11-22 09:53 | XR ---
EXAMINATION TYPE: XR ribs bilat w pa chest xray DATE OF EXAM: 11/22/2018 COMPARISON: NONE HISTORY: Pain TECHNIQUE: Frontal view the chest and 4 views of the bilateral ribs submitted. FINDINGS: There is right-sided consolidation and small effusion. No pneumothorax. Left lung clear. Th ere are multiple right-sided rib deformities. Of portions of the lower rib cage not included. Small l eft pleural effusion also suspected. Rib deformities on the left are also noted. Lower rib cage bilat erally is nondiagnostic. IMPRESSION: 1. Bilateral lower lobe infiltrate and small effusion. 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 No pneumothorax.
--- NOTE | 2018-11-22 10:37 | P.PN ---
<Chelle Perera A - Last Filed: 11/22/18 10:36> Subjective Progress Note Date: 11/22/18 CHIEF COMPLAINT: Abdominal pain HISTORY OF PRESENT ILLNESS: Patient examined at the bedside. She is sitting up in the chair. She reports mild abdominal pain controlled on oral medications. Pa ssing flatus. Denies bowel movement. WBC 7.9. Hemoglobin 13.1. Vital signs stable. She is afebrile. PHYSICAL EXAM: VITAL SIGNS: Currently stable. GENERAL: Well-developed in no acute distress. HEENT: No sclera icterus. Extraocular movements grossly intact. Moist buccal mucosa. Head is atraumatic, normocephalic. Hears conversational speech. No nasal drainage. NECK: Supple without lymphadenopathy. CHEST: Non-labored respirations and equal bilateral excursions. CARDIOVASCULAR: Regular rate with regular rhythm. Palpable 2+ radial pulses. ABDOMEN: Soft. Nondistended. Nontender with palpation. Right inguinal hernia. Reducible. MUSCULOSKELETAL: No clubbing, cyanosis or edema. NEUROLOGIC: No focal or lateralizing signs. Cranial nerves II through XII grossly intact. PSYCH: Appropriate affect. Alert and oriented to person, place and time. SKIN: Well perfused. Good skin turgor. ASSESSMENT: 1. Ileus 2. Hiatal hernia 3. Right inguinal hernia PLAN: 1. Continue full liquid diet 2. Pain control. Avoid narcotics if possible. Motrin PRN. 3. Activity as tolerated 4. Patient to have outpatient repair of right inguinal hernia 5. Anticipate [facility] Nurse practitioner note has been reviewed by physician. Signing provider agrees with the documented findings, assessment, and plan of care. Objective - Vital Signs Vital signs: Vital Signs Temp 98.2 F 11/22/18 05:42 Pulse 66 11/22/18 05:42 Resp 18 11/22/18 05:42 BP 124/67 11/22/18 05:42 Pulse Ox 94 L 11/22/18 05:42 Intake & Output 11/21/18 11/22/18 11/22/18 18:59 06:59 18:59 Other: Voiding Method Bedside Commode # Voids 1 2 2 # Bowel Movements 0 - Labs CBC & Chem 7: 11/22/18 07:54 11/22/18 07:54 Labs: Microbiology - Last 24 Hours (Table) 11/19/18 11:57 Blood Culture - Preliminary Blood No Growth after 48 hours Assessment and Plan (1) Inguinal hernia Current Visit: Yes Status: Acute Code(s): K40.90 - UNIL INGUINAL HERNIA, W/O OBST OR GANGR, NOT SPCF RECUR SNOMED Code(s): 983958971 (2) Abdominal pain Current Visit: Yes Status: Acute Code(s): R10.9 - UNSPECIFIED ABDOMINAL PAIN SNOMED Code(s): 87824191 (3) Hiatal hernia Current Visit: Yes Status: Acute Code(s): K44.9 - DIAPHRAGMATIC HERNIA WITHOUT OBSTRUCTION OR GANGRENE SNOMED Code(s): 52615669 (4) Ileus Current Visit: Yes Status: Acute Code(s): K56.7 - ILEUS, UNSPECIFIED SNOMED Code(s): 196981508 <SadiqCarol N - Last Filed: 11/22/18 18:46> Subjective Patient has multiple large hernias including right inguinal bowel containing and large hiatal hernia. She is tolerating liquids. She has generalized aches and pain. She was passing flatus. At this time, she is pending transfer to rehab pending clinical course. Objective - Vital Signs Vital signs: Vital Signs Temp 97.8 F 11/22/18 12:59 Pulse 70 11/22/18 12:59 Resp 18 11/22/18 12:59 BP 119/74 11/22/18 12:59 Pulse Ox 94 L 11/22/18 12:59 Intake & Output 11/21/18 11/22/18 11/22/18 18:59 06:59 18:59 Other: Voiding Method Bedside Commode # Voids 1 2 1 # Bowel Movements 0 - Labs CBC & Chem 7: 11/22/18 07:54 11/22/18 07:54 Labs: Microbiology - Last 24 Hours (Table) 11/19/18 11:57 Blood Culture - Preliminary Blood No Growth after 72 hours
[2018-11-22] MEDS: SODIUM CHLORIDE 0.9% 1,000 ML IV SCH (12:01)
[2018-11-22] MEDS: AZITHROMYCIN 500 MG TAB PO SCH (20:51)
[2018-11-23] MEDS: SODIUM CHLORIDE 0.9% 1,000 ML IV SCH (05:32)
[2018-11-23 07:42] VITALS: BP 143/75; PULSE 71; RESP 16; TEMP 97.6
[2018-11-23] MEDS: AZITHROMYCIN 500 MG TAB PO SCH (07:51)
[2018-11-23] MEDS: amLODIPine 5 MG TAB PO SCH (07:52)
[2018-11-23] MEDS: PANTOPRAZOLE 40 MG TABLET PO SCH (07:52)
[2018-11-23] MEDS: HYDROcodone/APAP 5-325MG 1 EACH TAB PO PRN (07:52)
[2018-11-23] MEDS: LIDOCAINE 5% PATCH TOPICAL SCH (07:53)
[2018-11-23] MEDS: DOCUSATE 100 MG CAP PO SCH (07:53)
[2018-11-23] MEDS: ONDANSETRON 4 MG/2 ML VIAL IVP PRN (08:09)
--- NOTE | 2018-11-23 11:06 | P.DS ---
<Chelle Perera Andres - Last Filed: 11/23/18 11:03> Providers Expected date of discharge: 11/23/18 - Discharge Diagnosis(es) (1) Inguinal hernia Status: Acute (2) Abdominal pain Status: Acute (3) Hiatal hernia Status: Acute (4) Ileus Status: Acute Hospital Course: 88-year-old female who reports a 3-4 day history of abdominal pain. Patient reports pain was mostly in the epigastric region. She reports nausea but denies emesis. Reports last BM was about 5 days ago. She denies feeling consti pated. Patient reports she was evaluated at [facility] over the weekend and had a CT scan performed. Apparently, patient was notified via phone that she had a ruptured hiatal hernia and was told to come to the emergency room. Repeat CT performed at [facility] did not show evidence of rupture. Patient was admitted to the hospital. Patient was NPO initially until abdominal pain improved and then her diet was advanced as tolerated. Patient has been tolerating full liquid diet. Passing flatus and having BMs. patient complaining of rib pain during hospitalization. Chest x-ray was performed which revealed chronic rib deformities. Bilateral lobe infiltrate and small effusion. Patient was started on antibiotics per primary team. patient is stable for discharge today to subacute rehab. She is to follow up with Dr. Israel outpatient for repair of right inguinal hernia. Discharge Diagnosis: 1. Ileus 2. Hiatal hernia 3. Right inguinal hernia Nurse practitioner note has been reviewed by physician. Signing provider agrees with the documented findings, assessment, and plan of care. Patient Condition at Discharge: Stable Plan - Discharge Summary New Discharge Prescriptions: New Levofloxacin [Levaquin] 750 mg PO DAILY 3 Days #3 tab Continue Docusate [Colace] 100 mg PO DAILY Prevagen 1 tab PO DAILY Biotin 5,000 mcg PO DAILY amLODIPine [Norvasc] 5 mg PO DAILY Vit C/E/Zn/Coppr/Lutein/Zeaxan [Preservision Areds 2 Softgel] 2 cap PO DAILY Multivitamins, Thera [Multivitamin (formulary)] 1 tab PO DAILY Cholecalciferol [Vitamin D3 (25 Mcg = 1000 Iu)] 1,000 unit PO DAILY Omeprazole [PriLOSEC] 40 mg PO DAILY traMADol HCL [Ultram] 25 mg PO Q6H PRN #12 tablet PRN Reason: Pain Discharge Medication List Biotin 5,000 mcg PO DAILY 11/19/18 [History] Cholecalciferol [Vitamin D3 (25 Mcg = 1000 Iu)] 1,000 unit PO DAILY 11/19/18 [History] Docusate [Colace] 100 mg PO DAILY 11/19/18 [History] Multivitamins, Thera [Multivitamin (formulary)] 1 tab PO DAILY 11/19/18 [ History] Omeprazole [PriLOSEC] 40 mg PO DAILY 11/19/18 [History] Prevagen 1 tab PO DAILY 11/19/18 [History] Vit C/E/Zn/Coppr/Lutein/Zeaxan [Preservision Areds 2 Softgel] 2 cap PO DAILY 11/19/18 [History] amLODIPine [Norvasc] 5 mg PO DAILY 11/19/18 [History] Levofloxacin [Levaquin] 750 mg PO DAILY 3 Days #3 tab 11/23/18 [Rx] traMADol HCL [Ultram] 25 mg PO Q6H PRN #12 tablet 11/23/18 [Rx] Follow up Appointment(s)/Referral(s): [facility], [NON-STAFF] - Nonstaff,Physician [REFERRING] - 1-2 days Salvador Israel MD [STAFF PHYSICIAN] - 1 Week Activity/Diet/Wound Care/Special Instructions: Activity as tolerated Tylenol or Motrin as needed for pain Regular diet Discharge Disposition: TRANSFER TO SNF/ECF <Carol Babcock N - Last Filed: 11/23/18 16:22> Providers Date of admission: 11/19/18 15:34 Attending physician: Salvador Israel Consults: 11/19/18 15:35 Consult Physician Routine Consulting Provider: Gabriel Boggs Consult Reason/Comments: medical management, ileus Do you want consulting provider notified?: Yes Primary care physician: JULIUS Sherman
--- NOTE | 2018-11-23 11:07 | P.PN ---
Subjective Progress Note Date: 11/23/18 Principal diagnosis: Ileus Patient was seen and examined. No acute events overnight. Patient reports improvement in her abdominal pain. Had a bowel movement today. Passing gas. She denies any nausea or vomiting. No fever or chills. Patient denies any chest pain, shortness breath or palpitations. Objective - Vital Signs Vital signs: Vital Signs Temp 97.6 F 11/23/18 06:47 Pulse 71 11/23/18 06:47 Resp 16 11/23/18 06:47 BP 143/75 11/23/18 06:47 Pulse Ox 93 L 11/23/18 06:47 Intake & Output 11/22/18 11/23/18 11/23/18 18:59 06:59 18:59 Intake Total 250 180 Balance 250 180 Weight 46.9 kg Intake: Intake, IV Titration 50 Amount cefTRIAXone 1 gm In 50 Sodium Chloride 0.9% 50 ml @ 100 mls/hr IVPB Q24HR [facility] Rx#:[id number] Oral 200 180 Other: Voiding Method Bedside Commode # Voids 1 0 # Bowel Movements 0 1 - Exam General: [non toxic], [no distress], [appears at stated age] Derm: [warm], [dry] Head: [atraumatic], [normocephalic], [symmetric] Eyes: [EOMI], [no lid lag], [anicteric sclera] Mouth: [no lip lesion], [mucus membranes moist] Cardiovascular: [S1S2 reg], [no murmur], [positive DP pulse bilateral], [tenderness to palpation of the lateral ribs bilaterally] Lungs: [CTA bilateral], [no rhonchi, no rales] , [no accessory muscle use] Abdominal: [soft], [epigastric tenderness to palpation with no rebound, improved], [no guarding], [no appreciable organomegaly] Ext: [no gross muscle atrophy], [no edema], [no contractures] Neuro: [no focal neuro deficits] Psych: [Alert], [oriented], [appropriate affect] - Labs CBC & Chem 7: 11/22/18 07:54 11/22/18 07:54 Labs: Microbiology - Last 24 Hours (Table) 11/19/18 11:57 Blood Culture - Preliminary Blood No Growth after 72 hours Assessment and Plan Assessment: Assessment and Plan Abdominal pain, likely secondary to ileus Community acquired pneumonia Rib pain Leukocytosis Hypertension GERD CT abdomen and pelvis shows no concerns for rupture of esophageal hernia. Patient is hemodynamically stable. Given 1 dose of Rocephin and Flagyl. Plans: Management as per general surgery. Continue normal saline at 75 mL per hour. Zofran as needed for nausea and vomiting. Full liquid diet and advance diet as tolerated. Docusate to help bowel movement. One-time dose of milk of magnesia yesterday. As seen on chest x-ray. Started on ceftriaxone and azithromycin yesterday. Plans: Will transitioned to Levaquin to complete a total of 5 days of antibiotics. O2 per NC to maintain O2 saturation greater than 92%. Post fall. CT of the abdomen and pelvis shows right-sided consolidation. Rib x-ray shows multiple fractures and right consolidation. Plans: Pain management with [place]. Incentive spirometry. Leukocytosis of 13.5-12-within normal limits, afebrile. No obvious signs of infection. Lactic acid is negative. Blood cultures negative at 72 hours. Plans: Follow blood cultures. Will hold antibiotics for now pending surgery evaluat ion. Daily CBC. BP 143/75. Plans: Continue amlodipine. Monitor vitals, adjust medications as necessary. Plans: Continue PPI. Patient is admitted for abdominal pain, likely secondary to ileus. Gen. surgery is onboard. She is pending clinical improvement, needs to help bowel movement. Plans for rehab on Monday. Would recommend 3 more days of Levaquin by mouth.
== END 2018-11-23 13:31 | DRG 388 ==
LOC: EC 11:17 → 4MS4W 15:34 → 4SSUR 11-22 17:18
PROVIDERS: ADMIT Surgery; ATTEND Surgery
DX: K56.7 Ileus, unspecified (principal); J18.9 Pneumonia, unspecified organism; M48.54XA Collapsed vertebra, not elsewhere classified, thoracic region, initial encounter for fracture; K44.9 Diaphragmatic hernia without obstruction or gangrene; I10 Essential (primary) hypertension; I44.0 Atrioventricular block, first degree; K21.9 Gastro-esophageal reflux disease without esophagitis; Z91.81 History of falling; Z79.899 Other long term (current) drug therapy; Z90.710 Acquired absence of both cervix and uterus; Z98.49 Cataract extraction status, unspecified eye; Z82.61 Family history of arthritis; Z83.2 Family history of diseases of the blood and blood-forming organs and certain disorders involving the immune mechanism; G43.909 Migraine, unspecified, not intractable, without status migrainosus; Z90.49 Acquired absence of other specified parts of digestive tract; R07.81 Pleurodynia; R32 Unspecified urinary incontinence; Z88.6 Allergy status to analgesic agent; Z88.1 Allergy status to other antibiotic agents; Z88.2 Allergy status to sulfonamides
CPT/HCPCS: 36415; 71111; 71250; 74018; 74019; 74176; 80048; 80053; 83605; 83690; 84484; 85025; 87040; 93005; 96361; 96365; 96375; 99285